=== PATIENT | female | born 1960 | race Caucasian/White ===

== ENCOUNTER 2022-03-10 16:58 | Emergency (ER) | payer OTHER ==
[~2022-03-10] VITALS: Ht 154.9 cm; Wt 68.0 kg
[2022-03-10] MEDS ORDERED: LORAZEPAM 0.5 MG TABLET ONE (17:13)
[2022-03-10] MEDS ORDERED: LORAZEPAM 0.5 MG TABLET PO ONE (17:15)
[2022-03-10 17:29] LABS: HEMATOCRIT 44.3 % (31.2-41.9); MEAN CORPUSCULAR HEMOGLOBIN 28.3 uug (24.7-32.8); MEAN CORPUSCULAR VOLUME 83.2 fL (75.5-95.3); PLATELET COUNT (AUTO) 194 K/uL (179-408)
[2022-03-10 17:32] LABS: CARBON DIOXIDE 22 mmol/L (21-32); CHLORIDE 103 mmol/L (98-107); CREATININE 1.1 mg/dL (0.6-1.3); GLUCOSE 231 mg/dL (74-106); POTASSIUM 3.5 mmol/L (3.5-5.1); UREA NITROGEN, BLOOD 17 mg/dL (7-18)
[2022-03-10 17:48] LABS: ALANINE AMINOTRANSFERASE 41 U/L (14-59); ALKALINE PHOSPHATASE 89 U/L (50-136); ASPARTATE AMINOTRANSFERASE < 5 U/L (15-37); BILIRUBIN,TOTAL 0.4 mg/dL (0.2-1.0); TOTAL PROTEIN, SERUM 7.7 g/dL (6.4-8.2)
[2022-03-10] MEDS ORDERED: ASPIRIN 81 MG TAB.CHEW ONE (18:34)
[2022-03-10] MEDS ORDERED: ASPIRIN 81 MG TAB.CHEW PO ONE (18:45)
--- NOTE | 2022-03-10 19:07 | NUR ---
RECEIVED SBAR REPORT FROM ALEYDA. PT NOTED TO BE IN BED RESTING COMFORTABLY, DENIES ANY PAIN/DISCOMFORT AT THIS TIME. NO SOB OR LABORED BREATHING.
[2022-03-10 19:36] LABS: MAGNESIUM 2.1 mg/dL (1.8-2.4)
[2022-03-10] MEDS ORDERED: CYANOCOBALAMIN 1000 MCG/ML VIAL IM ONE (19:45)
[2022-03-10] MEDS ORDERED: CYANOCOBALAMIN 1000 MCG/ML VIAL ONE (20:24)
--- NOTE | 2022-03-10 20:35 | NUR ---
Patient discharged to home in stable condition. Written and verbal after care instructions given. Patient verbalizes understanding of instructions. Stressed follow up or return to ER for worsening s/s. Steady gait, denies any pain/discomfort upon discharge. No SOB or labored breathing. No n/v/d. Denies PATTERSON/dizzyness. No changes in LOC.
[2022-03-10 21:08] VITALS: BP 114/72
== END 2022-03-10 20:45 | disposition home or self-care (01) ==
LOC: ER 17:01
DX: R07.9 Chest pain, unspecified (principal); F41.9 Anxiety disorder, unspecified; Z88.0 Allergy status to penicillin; R73.9 Hyperglycemia, unspecified; Z28.310 Unvaccinated for COVID-19
CPT/HCPCS: 99285; 71045; 80053; 82607; 83880; 83735; 85025; 84484 ×2; 36415; 93005; 96372; J3420; A4663